=== PATIENT | male | born 1955 | race African-American/Black ===

== ENCOUNTER 2017-05-17 09:11 | Outpatient (CLI) | payer OTHER ==
--- NOTE | 2017-05-17 09:56 | Cat Scan Report ---
CT HEAD WITHOUT CONTRAST: 05/17/17 09:11:00 CLINICAL: Dizziness. Seizure. TECHNIQUE: 2.5-mm noncontrast scans. COMPARISON:None FINDINGS: The ventricles are normal for age. Mild prominence of frontal lobe and temporal lobe CSF spaces. No abnormal hypodensity. A benign left basal ganglia calcification. No mass or mass effect. No hemorrhage, edema or extra-axial collection. The sinuses are clear. Normal orbits and soft tissues. The calvarium and skull base are intact. IMPRESSION: Mild frontal and temporal lobe cortical atrophy. No mass and no acute change.
== END 2017-05-17 09:12 | disposition home or self-care (01) ==
LOC: SPVIMAG 09:11
PROVIDERS: ATTEND Internal Medicine
DX: G31.89 Other specified degenerative diseases of nervous system (principal); R42 Dizziness and giddiness; R56.9 Unspecified convulsions
CPT/HCPCS: 70450

== ENCOUNTER 2018-03-01 14:08 | Outpatient (CLI) | payer OTHER ==
--- NOTE | 2018-03-01 18:01 | XRay Report ---
FINAL REPORT EXAM: XR SPINE LUMBOSACRAL 4+V HISTORY: LOW BACK PAIN TECHNIQUE: 5 views of the lumbar spine PRIORS: None. FINDINGS: 2 adjacent sclerotic foci are nonspecific in the right medial iliac wing. These may be bone islands. Surgical clips in lower pelvis midline. These may be related to prostate or bladder surgery. There is slight mural calcified atherosclerotic plaque in the abdominal aorta. Vertebral compression fracture: None Spondylolysis on oblique views: None visible. Anterolisthesis: None Retrolisthesis: None Disc narrowing: None Degenerative change: Multilevel at the vertebral endplates and facet joints. IMPRESSION: No acute skeletal pathology Nonspecific adjacent sclerotic foci are present in the medial right iliac wing. These may be bone isl ands. 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
== END 2018-03-01 14:09 | disposition home or self-care (01) ==
LOC: XRAY 14:08
PROVIDERS: ATTEND Internal Medicine
DX: M47.896 Other spondylosis, lumbar region (principal); C61 Malignant neoplasm of prostate
CPT/HCPCS: 72110